=== PATIENT | male | born 1945 | race Caucasian/White ===

== ENCOUNTER 2019-06-05 16:04 | Inpatient (IN) | payer OTHER ==
[~2019-06-05] VITALS: Ht 167.6 cm; Wt 103.4 kg
[2019-06-05] MEDS ORDERED: HYDROCODON-ACE1 EA10 PO (17:58)
[2019-06-05] MEDS ORDERED: ASPIRIN81 MG PO (17:59)
[2019-06-05] MEDS ORDERED: FLOMAX0.4 MG PO (17:59)
[2019-06-05] MEDS ORDERED: CELEBREX200 MG PO (17:59)
[2019-06-05] MEDS ORDERED: VOLTAREN100 GM TOPICAL (18:00)
[2019-06-05] MEDS ORDERED: THERAGRAN M [BK1 TAB PO (18:01)
[2019-06-05] MEDS ORDERED: LIDODERM 5 %1 PATCH TRANSDERM (18:01)
[2019-06-05] MEDS ORDERED: OMEPRAZOLE20 M1 PO (18:02)
--- NOTE | 2019-06-05 18:08 | NUR ---
RECEIVED PT VIA STRETCHER WITH EMS. PT IS AAO AND UP AD CARA. RR EVEN AND UNLABORED ON RA. NO S/S OF DISTRESS NOTED. PIV SALINE LOCKED. PT DENIES ANY NEEDS. ORIENTED TO ROOM. FALL PRECAUTIONS IN PLACE. WILL CTM.
--- NOTE | 2019-06-05 19:32 | NUR ---
PT LYING IN BED AWKAE ALERT AND ORIENTED x4. TALKING ON PHONE. NO SIGNS OR SYMPTOMS OF DISTRESS NOTED. RESPIRATIONS EVEN AND UNLABORED. NO COMPLAINTS OF PAIN AT THIS TIME. CALL LIGHT WITH IN REACH AND BED IS IN LOWEST POSTION. WILL CONTINUE TO MONITOR
[2019-06-05 21:03] VITALS: BP 123/89
[2019-06-06] VITALS (7 sets, daily range): BP systolic 123–163; BP diastolic 75–92; BMI 33.8
--- NOTE | 2019-06-06 02:08 | NUR ---
PT LYING N BED RESTING WITH EYES CLOSED. NO SIGNS OR SYMPTOMS OF DISTRESSNOTED. RESPIRATIONS EVEN AND UNLABORED. PT HAD SHOWER. PT ENCOURAGED TO CALL FOR HELP WHEN NEEDED. CALL LIGHT WITH IN REACH AND BED IS IN LOWEST POSITION. WILL CONTINUE TO MONITOR
--- NOTE | 2019-06-06 02:11 | NUR ---
I have reviewed this patient and I concur with the Shift Assessment completed by the Licensed Practical Nurse today this shift.
--- NOTE | 2019-06-06 03:40 | NUR ---
CONSENTS FOR RENAL BIOPSY SIGNED AND CHARTED
[2019-06-06 05:19] LABS: BASOPHILS 0.3 % (0-2); EOSINOPHILS 8.7 % (0-7); HEMATOCRIT 34.6 % (42.0-54.0); HEMOGLOBIN 11.1 g/dL (13.5-17.5); IMMATURE GRANULOCYTES 0.3 % (0-5); LYMPHOCYTES 13.5 % (15-50); MCH 26.4 pg (26.0-34.0); MCHC 32.1 g/dL (31.0-37.0); MCV 82.4 fL (80.0-100.0); MEAN PLATELET VOLUME 8.8 fL (7.4-10.4); MONOCYTES 12.3 % (2-11); NEUTROPHILS 64.9 % (40-80); PLATELET COUNT 231 10x3/uL (130-400); RDW 17.8 % (11.5-14.5)
[2019-06-06 05:40] LABS: INR 1.13 (0.85-1.17); PROTIME 14.5 SECONDS (11.6-15.0)
[2019-06-06 05:57] LABS: ALBUMIN 2.2 g/dL (3.4-5.0); ANION GAP 15.6 mmol/L (8-16); BILIRUBIN - TOTAL 0.32 mg/dL (0.2-1.3); CALCIUM 7.3 mg/dL (8.5-10.1); CARBON DIOXIDE 20.9 mmol/L (21.0-32.0); CREATININE - SERUM 6.7 mg/dL (0.6-1.3); POTASSIUM - SERUM 5.5 mmol/L (3.5-5.1); PROTEIN - SERUM 6.1 g/dL (6.4-8.2)
--- NOTE | 2019-06-06 08:21 | NUR ---
PT RESTING, DENIES NEEDS OR PAIN AT THIS TIME. RR EVEN AND UNLABORED. BED IN LOWEST POSITION. CALL LIGHT WITHIN REACH. SPOKE WITH IR, STATED THEY COULD NOT TAKE PATIENT FOR BIOPSY BECAUSE HE HAD NOT BEED TAKEN OFF HIS ASPIRIN. KOREY ALCANTAR NOTIFIED.
[2019-06-06 13:51] LABS: COMPLEMENT C4 19.4 mg/dL (17.4-52.2)
[2019-06-06 14:31] LABS: ERYTHROCYTE SEDIMENTATION RATE 45 mm/hr (0-20)
[2019-06-06 17:20] LABS: NITRITE NEGATIVE (NEGATIVE)
[2019-06-06 17:21] LABS: BILIRUBIN NEGATIVE (NEGATIVE); GLUCOSE NEGATIVE (NEGATIVE); KETONE NEGATIVE (NEGATIVE); UROBILINOGEN NORMAL (NORMAL)
[2019-06-06 17:22] LABS: BACTERIA MODERATE /hpf (NEGATIVE); RED CELLS - URINE >50 /hpf (0-5); WHITE CELLS - URINE 0-5 /hpf (NEGATIVE)
--- NOTE | 2019-06-06 18:29 | NUR ---
I have reviewed this patient and I concur with the Shift Assessment completed by the Licensed Practical Nurse today this shift.
--- NOTE | 2019-06-06 19:00 | NUR ---
REPORT RECEIVED, WILL CONTINUE POC. PATIENT IS AAOX4, LYING ON RT SIDE. NO S/S OF DISTRESS OBSERVED, RR EVEN AND UNLABORED ON ROOM AIR. PIV TO RT FA, PATENT, SL, NICKG C/D/I. PATIENT DENIES NEEDS AT THIS TIME. CL IN REACH, BED LOCKED AND LOWERED. WILL CTM.
[2019-06-07] VITALS: BP 139/97
--- NOTE | 2019-06-07 01:41 | NUR ---
I have reviewed this patient and I concur with the Shift Assessment completed by the Licensed Practical Nurse today this shift.
[2019-06-07 04:00] VITALS: BP 149/71
[2019-06-07 06:13] LABS: INR 1.21 (0.85-1.17); PROTIME 15.2 SECONDS (11.6-15.0)
[2019-06-07 06:36] LABS: ALBUMIN 2.2 g/dL (3.4-5.0); BILIRUBIN - DIRECT 0.11 mg/dL (0.00-0.30); BILIRUBIN - INDIRECT 0.27 mg/dL (0.00-1.00); BILIRUBIN - TOTAL 0.38 mg/dL (0.2-1.3); CHOL - HDL RATIO 4.9 ratio (2.3-4.9); LDL-HDL RATIO 3.1 ratio (1.5-3.5); PROTEIN - SERUM 6.3 g/dL (6.4-8.2)
[2019-06-07 10:59] VITALS: BP 140/79
[2019-06-07 11:10] LABS: ANA REFLEX - DIRECT Negative (Negative); SPE - A/G RATIO 0.7 (0.7-1.7); SPE - ALBUMIN 2.8 g/dL (2.9-4.4); SPE - ALPHA-1 GLOBULIN 0.4 g/dL (0.0-0.4); SPE - ALPHA-2 GLOBULIN 0.9 g/dL (0.4-1.0); SPE - BETA GLOBULIN 1.1 g/dL (0.7-1.3); SPE - GAMMA GLOBULIN 1.5 g/dL (0.4-1.8); SPE - M-SPIKE Not Observed g/dL (Not Observed); SPE - TOTAL PROTEIN 6.6 g/dL (6.0-8.5)
[2019-06-07 11:33] LABS: ANION GAP 18.2 mmol/L (8-16); CALCIUM 7.6 mg/dL (8.5-10.1); CARBON DIOXIDE 20.1 mmol/L (21.0-32.0); CREATININE - SERUM 7.9 mg/dL (0.6-1.3); POTASSIUM - SERUM 5.3 mmol/L (3.5-5.1); URIC ACID 8.7 mg/dL (2.6-7.2)
--- NOTE | 2019-06-07 13:20 | NUR ---
I have reviewed this patient and I concur with the Shift Assessment completed by the Licensed Practical Nurse today this shift.
[2019-06-07 13:52] VITALS: BP 128/83
[2019-06-07 14:28] LABS: CREATININE - URINE 54.9 mg/dL (30-125)
[2019-06-07 14:29] LABS: PRO/CRE RATIO URINE 4.7 mg/g; PROTEIN - URINE 257.1 mg/dL (0.0-11.9)
--- NOTE | 2019-06-07 19:49 | NUR ---
REPORT RECEIVED, WILL CONTINUE POC. PATIENT IS AAOX4, SITTING IN CHAIR, FAMILY AT BEDSIDE. EDUCATED PATIENT ABOUT NPO @ MIDNIGHT FOR KIDNEY BIOPSY IN AM. PATIENT EXPRESSED UNDERSTANDING. NO S/S OF DISTRESS OBSERVED, RR EVEN AND UNLABORED ON ROOM AIR. PIV TO RT FA, PATENT, SL. PATIENT DENIES NEEDS AT THIS TIME. CL IN REACH BED LOCKED AND LOWERED. WILL CTM.
[2019-06-07 20:00] VITALS: BP 149/97
--- NOTE | 2019-06-07 23:30 | NUR ---
ELIF MC, ORE MIXER FOR PATIENT HR STAYING IN THE 130'S. ORDERS RECEIVED, PIZZA CHEF CALLED TO PULL MED TO BE ADMINISTERED.
[2019-06-08] VITALS: BP 144/99
--- NOTE | 2019-06-08 03:31 | NUR ---
I have reviewed this patient and I concur with the Shift Assessment completed by the Licensed Practical Nurse today this shift.
[2019-06-08 04:00] VITALS: BP 142/98
--- NOTE | 2019-06-08 04:54 | NUR ---
PT HR 13O'S AGAIN, EKG PERFORMED RESULTS REPORTED TO ANNIE MC APN.
[2019-06-08 05:25] LABS: ANION GAP 18.9 mmol/L (8-16); CALCIUM 7.7 mg/dL (8.5-10.1); CARBON DIOXIDE 17.9 mmol/L (21.0-32.0); CREATININE - SERUM 8.8 mg/dL (0.6-1.3); POTASSIUM - SERUM 5.8 mmol/L (3.5-5.1)
[2019-06-08 05:29] LABS: BASOPHILS 0 % (0-2); EOSINOPHILS 0 % (0-7); HEMATOCRIT 36.2 % (42.0-54.0); HEMOGLOBIN 11.9 g/dL (13.5-17.5); IMMATURE GRANULOCYTES 0.3 % (0-5); LYMPHOCYTES 8.9 % (15-50); MCH 26.3 pg (26.0-34.0); MCHC 32.9 g/dL (31.0-37.0); MEAN PLATELET VOLUME 8.7 fL (7.4-10.4); MONOCYTES 1.6 % (2-11); NEUTROPHILS 89.2 % (40-80); RBC 4.53 10x6/uL (4.20-6.10); WBC 7.6 10x3/uL (4.8-10.8)
[2019-06-08 05:43] LABS: INR 1.13 (0.85-1.17); PROTIME 14.5 SECONDS (11.6-15.0)
[2019-06-08 05:44] LABS: APTT 38.2 SECONDS (22.8-39.4)
[2019-06-08 05:45] LABS: MCV 79.9 fL (80.0-100.0)
[2019-06-08 05:46] LABS: PLATELET COUNT 310 10x3/uL (130-400)
--- NOTE | 2019-06-08 05:56 | NUR ---
CARDIOLOGY CONSULTED PER ANNIE MC. ORDERS RECEIVED FROM DR. OLEARY. WILL HAVE RN ADMINISTER CARDIZEM DRIP PER ORDERS.
--- NOTE | 2019-06-08 08:07 | NUR ---
PT IS RESTING IN BED WITH EYES OPEN. RESPIRATIONS ARE EVEN AND UNLABORED. PT IS AAO X 4. PT IS NPO FOR PROCEDURE WITH IR. PT VERBALIZES UNDERSTANDING. PT DENIES PRESENCE OF N/V/DYSPNEA AT THIS TIME. PT DENIES PRESENCE OF PAIN AT THIS TIME. BED IS IN THE LOWEST POSITION. CALL LIGHT AND BEDSIDE TABLE ARE WITHIN REACH. SIDE RAILSX 2. PT DENIES FURTHER NEEDS. WILL CONT TO MONITOR.
[2019-06-08 09:10] LABS: ANTI-GLOMERULAR BASMENT MEMBRN 3 units (0-20)
--- NOTE | 2019-06-08 09:10 | NUR ---
PT TRANSPORTED OFF FLOOR VIA BED FOR PROCEDURE.
--- NOTE | 2019-06-08 09:51 | NUR ---
PT RETURNS TO ROOM AAO X 4. UNABLE TO COMPLETE PROCEDURE PER IR NURSE. SEE DOCUMENTATION. PT DENIES PRESENCE OF PAIN/N/V/DYSPNEA. BED IS IN THE LOWEST POSITION. CALL LIGHT AND BEDSIDE TABLE ARE WITHIN REACH. SIDE RAILS X 2. PT DENIES FURTHER NEEDS. WILL CONT TO MONITOR.
[2019-06-08 10:03] VITALS: BP 113/89
[2019-06-08 12:40] VITALS: BP 135/76
[2019-06-08 12:59] LABS: BASOPHILS 0 % (0-2); EOSINOPHILS 0 % (0-7); HEMATOCRIT 37.9 % (42.0-54.0); HEMOGLOBIN 12.6 g/dL (13.5-17.5); IMMATURE GRANULOCYTES 0.2 % (0-5); LYMPHOCYTES 6.7 % (15-50); MCH 26.5 pg (26.0-34.0); MCHC 33.2 g/dL (31.0-37.0); MEAN PLATELET VOLUME 8.6 fL (7.4-10.4); MONOCYTES 2.3 % (2-11); NEUTROPHILS 90.8 % (40-80); RBC 4.75 10x6/uL (4.20-6.10); RDW 16.9 % (11.5-14.5)
[2019-06-08 13:00] LABS: MCV 79.8 fL (80.0-100.0); PLATELET COUNT 339 10x3/uL (130-400); WBC 12.3 10x3/uL (4.8-10.8)
[2019-06-08 13:15] LABS: ANION GAP 17.3 mmol/L (8-16); CALCIUM 8.2 mg/dL (8.5-10.1); CARBON DIOXIDE 21.5 mmol/L (21.0-32.0); CREATININE - SERUM 9.1 mg/dL (0.6-1.3); POTASSIUM - SERUM 5.8 mmol/L (3.5-5.1)
--- NOTE | 2019-06-08 14:18 | NUR ---
CONSENT SIGNED FOR TRIALYSIS PLACEMENT. DR ASHTON ON FLOOR. SIGNED CONSENT PLACED IN PT CHART.
--- NOTE | 2019-06-08 16:42 | EC ---
PATIENT:ALFREDO LANZA DATE OF SERVICE: 06/05/19 SEX: M MEDICAL RECORD: [id number] DATE OF : [birth year] LOCATION:D.M2 D.211 AGE OF PATIENT: 74 ADMISSION DATE: 06/05/19 REFERRING PHYSICIAN: INTERPRETING PHYSICIAN: EBONY MCMAHAN MD ECHOCARDIOGRAM REPORT ECHO CHARGES 4 ECHO COMPLETE Date: 06/08/19 CLINICAL DIAGNOSIS: AFLUTTER ECHOCARDIOGRAPHIC MEASUREMENTS (adult normal given) AC root (d.<3.7cm) 3.2 cm LV Septum d (<1.2 cm> 1.5 cm Valve Excursion 1.9 cm LV Septum (systole) 1.6 cm Left Atria (s.<4.0cm> 4.6 cm LVPW d(<1.2cm) 1.1 cm RV (d.<2.3cm) 2.9 cm LVPW (sytole) 1.5 cm LV diastole(<5.6CM) 4.6 cm MV E-F(>70mm/sec) cm LV systole 3.3 cm LVOT Diameter 2.1 cm MV exc.(>10mm) cm Est.ejection fraction (50-75%) % DOPPLER: LVIT cm/sec A 75 cm/sec E 60 cm/sec LA cm/sec RVSP 20.1 mmHg LVOT 80 cm/sec AOP1/2T m/s Asc. Ao 137 cm/sec RVOT 61 cm/sec RA cm/sec PA 85 cm/sec AV Gradient Peak 7.5 mmHg AV Mean 5.3 mmHg AV Area 1.9 cm MV Gradient Peak 4.5 mmHg MV Mean 2.3 mmHg MV Area cm COMMENTS: Damage Inside Adjuster: [facility] Window Shade Cutter: 1 Dr. Mcmahan TAPE# PACS Pericardial Effusion N DATE OF SERVICE: ECHOCARDIOGRAM FINDINGS: 1. Left ventricular chamber size is within normal limits. Left ventricular systolic function is mildly depressed at 40% to 45%. 2. Left atrium is enlarged at 4.6 cm. Right atrium and right ventricular chamber sizes are as well mildly dilated. 3. Valvular structures have normal structure and motion. ECHOCARDIOGRAM REPORT [id number] ALFREDO LANZA 4. Doppler interrogation only reveals trace mitral regurgitation, mild tricuspid regurgitation, no other valvular insufficiency or stenosis. Pulmonary systolic pressure estimated at 20 mmHg. 5. No evidence of pericardial effusion or left ventricular thrombus. TRANSINT:[id number] Voice Confirmation ID: [id number] DOCUMENT ID: [id number] EBONY MCMAHAN MD at 1642 CC: [id number] DICTATION DATE: 06/08/19 1145 HOT BLASTER: 06/08/19 1224 ADM IN [facility] [address] [place] [address]
--- NOTE | 2019-06-08 19:23 | NUR ---
REPORT RECEIVED, WILL CONTINUE POC. PATIENT IS AAOX4, SITTING UP ON SIDE OF BED EATING. FAMILY AT BEDSIDE. PATIENT'S HR IN THE 150'S, HE'S ASYMPTOMATIC. PATIENT HAD NEW TRIALYSIS PLACED TO RT SIDE OF NECK, DRSG C/D/I. PIV TO RT FA, PATENT, SL. NO S/S OF DISTRESS OBSERVED, RR EVEN AND UNLABORED ON ROOM AIR. PATIENT DENIES NEEDS AT THIS TIME. CL IN REACH, BED LOCKED AND LOWERED. WILL CTM.
[2019-06-08 20:30] VITALS: BP 170/130
--- NOTE | 2019-06-08 20:40 | NUR ---
PT BP 171/114, HR STILL IN THE 130-150 RANGE. HS AMIODARONE ADMINISTERED. WILL REASSESS.
[2019-06-08 21:05] LABS: BILIRUBIN NEGATIVE (NEGATIVE); GLUCOSE NEGATIVE (NEGATIVE); KETONE NEGATIVE (NEGATIVE); NITRITE NEGATIVE (NEGATIVE); UROBILINOGEN NORMAL (NORMAL)
[2019-06-08 21:09] LABS: WHITE CELLS - URINE 0-5 /hpf (NEGATIVE)
[2019-06-08 21:10] LABS: BACTERIA FEW /hpf (NEGATIVE); RED CELLS - URINE 25-50 /hpf (0-5)
--- NOTE | 2019-06-09 00:29 | NUR ---
PT HAS DEVELOPED 1+ EDEMA TO BILATERAL LOWER EXTREMITIES. PATIENT HAS BEEN SITTING UP IN CHAIR SINCE THE BEGINNING OF SHIFT. HAD PATIENT GET INTO BED AND ELEVATE HIS FEET. BP 134/93 HR 103. PATIENT DENIES ANY PAIN OR DISCOMFORT. WILL CTM.
[2019-06-09 00:30] VITALS: BP 134/93
[2019-06-09 04:30] VITALS: BP 135/91
--- NOTE | 2019-06-09 05:00 | NUR ---
I have reviewed this patient and I concur with the Shift Assessment completed by the Licensed Practical Nurse today this shift.
[2019-06-09 05:19] LABS: BASOPHILS 0 % (0-2); EOSINOPHILS 0 % (0-7); HEMATOCRIT 33.9 % (42.0-54.0); HEMOGLOBIN 11.3 g/dL (13.5-17.5); IMMATURE GRANULOCYTES 0.3 % (0-5); LYMPHOCYTES 5.9 % (15-50); MCH 26.2 pg (26.0-34.0); MCHC 33.3 g/dL (31.0-37.0); MCV 78.5 fL (80.0-100.0); MEAN PLATELET VOLUME 8.7 fL (7.4-10.4); MONOCYTES 3.3 % (2-11); NEUTROPHILS 90.5 % (40-80); PLATELET COUNT 324 10x3/uL (130-400); RBC 4.32 10x6/uL (4.20-6.10); RDW 16.7 % (11.5-14.5); WBC 12.3 10x3/uL (4.8-10.8)
[2019-06-09 05:45] LABS: ANION GAP 17.1 mmol/L (8-16); CALCIUM 7.6 mg/dL (8.5-10.1); CARBON DIOXIDE 21.1 mmol/L (21.0-32.0); CREATININE - SERUM 7.4 mg/dL (0.6-1.3); POTASSIUM - SERUM 5.2 mmol/L (3.5-5.1)
[2019-06-09 08:21] VITALS: BP 129/87
--- NOTE | 2019-06-09 08:37 | NUR ---
ROUNDING DONE WITH PATIENT BEING ON THE MONITOR SHOWING AFLUTTER, HR 89. ON ROOM AIR. RIGHT IJ TRIALYSIS SEEN WITH NURSE PORT, DRESSING CDI. RIGHT FA SEEN WITH SALINE LOCK. PATIENT IS MILLE LACS. AT BEDSIDE. DENIES NEEDS AT THIS TIME. WILL CONTINUE TO MONITOR.
[2019-06-09 11:22] VITALS: BP 151/89
--- NOTE | 2019-06-09 13:26 | NUR ---
SITTING IN CHAIR, IN THE BED. PATIENT EARILER IN SHIFT HAD SHOWER AND LINEN CHANGE. DENIES NEEDS AT THIS TIME.
--- NOTE | 2019-06-09 15:27 | NUR ---
PATIENT STATES THAT THE IV STEROIDS ARE SUPPOSE TO BE AT DIALYSIS. I CALLED SAWYER IN DIALYSIS AND HE WILL BE GOING DOWN SHORTLY AND SHE WILL HANG THE MEDICATION. I RELAYED THIS TO THE [facility].
[2019-06-09 15:32] VITALS: BP 153/82
--- NOTE | 2019-06-09 16:27 | NUR ---
PATIENT IN CHAIR MOST OF DAY WITH FEET DOWN. 3+ EDEMA NOTED. FEET UP AND TWO PILLOWS PLACED UNDER LEGS. FAMILY AT [facility]. STILL AWAITING FOR DIALYSIS.
--- NOTE | 2019-06-09 17:25 | NUR ---
TO DIALYSIS VIA CHAIR.
[2019-06-09 20:30] VITALS: BP 145/92
--- NOTE | 2019-06-09 20:53 | NUR ---
RECEIVED BACK FROM DIALYSIS. NO REPORT GIVEN TO THIS NURSE. ALERT AND ORIENTED X4. U[P AD CARA TO B/R. FAMILY AT BEDSIDE. TELEMETRY IN PLACE. RT IJ TRIALYSIS AND IV TO RT FS SL. DENIES ANY NEEDS AT THIS TIME.
[2019-06-10 00:30] VITALS: BP 144/85
[2019-06-10 04:30] VITALS: BP 146/89
[2019-06-10 05:33] LABS: BASOPHILS 0 % (0-2); EOSINOPHILS 0 % (0-7); HEMATOCRIT 32.8 % (42.0-54.0); HEMOGLOBIN 10.8 g/dL (13.5-17.5); IMMATURE GRANULOCYTES 0.6 % (0-5); LYMPHOCYTES 6.9 % (15-50); MCHC 32.9 g/dL (31.0-37.0); MEAN PLATELET VOLUME 8.8 fL (7.4-10.4); MONOCYTES 2.5 % (2-11); PLATELET COUNT 307 10x3/uL (130-400); RBC 4.15 10x6/uL (4.20-6.10); RDW 17.3 % (11.5-14.5)
[2019-06-10 05:36] LABS: WBC 8.7 10x3/uL (4.8-10.8)
[2019-06-10 05:55] LABS: ANION GAP 15.5 mmol/L (8-16); CALCIUM 7.4 mg/dL (8.5-10.1); CARBON DIOXIDE 23.3 mmol/L (21.0-32.0); POTASSIUM - SERUM 4.8 mmol/L (3.5-5.1)
--- NOTE | 2019-06-10 07:20 | NUR ---
RECIEVE REPORT. ALERT AND ORIENTED X4. SITTING UP IN CHAIR. [place]. SPOUSE AT BEDSIDE. DENIES ANY NEEDS. CONTINUE PLAN OF CARE AND SAFETY PRECAUTIONS.
[2019-06-10 08:06] VITALS: BP 135/84
[2019-06-10 11:47] VITALS: BP 142/76
[2019-06-10 15:55] VITALS: BP 199/91
--- NOTE | 2019-06-10 20:00 | NUR ---
RECEIVED BEDSIDE SHIFT REPORT. ALERT AND ORIENTED X4. UP AD CARA. REQUESTING A SHOWER. SHOWER GIVEN PER REQUEST. IV TO RT FS SL AND RT IJ TRIALYSIS SL. DENIES ANY NEEDS AT THIS TIME.
[2019-06-10 20:30] VITALS: BP 144/98
[2019-06-11] VITALS (12 sets, daily range): BP systolic 120–149; BP diastolic 75–98
[2019-06-11 05:15] LABS: BASOPHILS 0 % (0-2); EOSINOPHILS 0 % (0-7); HEMATOCRIT 31.8 % (42.0-54.0); HEMOGLOBIN 10.5 g/dL (13.5-17.5); IMMATURE GRANULOCYTES 0.6 % (0-5); LYMPHOCYTES 6.6 % (15-50); MCH 25.8 pg (26.0-34.0); MCV 78.1 fL (80.0-100.0); MEAN PLATELET VOLUME 8.9 fL (7.4-10.4); MONOCYTES 7.1 % (2-11); NEUTROPHILS 85.7 % (40-80); PLATELET COUNT 314 10x3/uL (130-400); RBC 4.07 10x6/uL (4.20-6.10); RDW 17.1 % (11.5-14.5); WBC 9.4 10x3/uL (4.8-10.8)
[2019-06-11 05:16] LABS: ANION GAP 15.6 mmol/L (8-16); CALCIUM 7.1 mg/dL (8.5-10.1); CARBON DIOXIDE 23.9 mmol/L (21.0-32.0); CREATININE - SERUM 6.7 mg/dL (0.6-1.3); POTASSIUM - SERUM 4.5 mmol/L (3.5-5.1)
--- NOTE | 2019-06-11 07:20 | NUR ---
RECIEVE REPORT. ALERT AND ORIENTED X4. RESTING IN BED. FAMILY AT BEDSIDE. CONSENTS FOR RENAL BIOPSY SIGNED ON CHART. A-FLUTTER ON TELEMETRY. DENIES ANY NEEDS AT THIS TIME. CONTINUE PLAN OF CARE AND SAFETY PRECAUTIONS.
[2019-06-11 07:43] LABS: APTT 31.5 SECONDS (22.8-39.4)
[2019-06-11 07:50] LABS: INR 1.09 (0.85-1.17)
--- NOTE | 2019-06-11 09:40 | NUR ---
TAKEN TO PROCEDURE VIA BED.
[2019-06-11 15:10] LABS: ANCA - ANTIMYELOPEROXIDASE 18.8 U/mL (0.0-9.0); ANCA - ANTIPROTEINASE 3 <3.5 U/mL (0.0-3.5); ANCA - ATYPICAL <1:20 titer (Neg:<1:20); ANCA - CYTOPLASMIC <1:20 titer (Neg:<1:20); ANCA - PERINUCLEAR <1:20 titer (Neg:<1:20)
--- NOTE | 2019-06-11 16:56 | NUR ---
ALERT AND ORIENTED X4. SITTING UP ON SIDE OF BED. LT SIDE BACK DRESSING CLEAN DRY INTACT. FREE FROM BLEEDING. DAUGHTER AT BEDSIDE. DENIES ANY NEEDS AT THIS TIME. CONTINUE PLAN OF CARE AND SAFETY PRECAUTIONS.
[2019-06-11 17:08] LABS: UPE RAND - ALBUMIN 45.5 % (()); UPE RAND - ALPHA 1 GLOBULIN 1.7 % (()); UPE RAND - BETA GLOBULIN 16.8 % (()); UPE RAND - GAMMA GLOBULIN 21.1 % (())
--- NOTE | 2019-06-11 19:36 | NUR ---
RECEIVED UP IN BED WITH EYES CLOSED. AROUSES TO VERBAL STIMULI. DTR AT BEDSIDE. ORIENTED X4. DSG TO LEFT LOWER BACK WITH PINK COLOR DRAINAGEON DSG. DSG INTACT. TELEMETRY IN PLACE. DENIES ANY NEEDS AT THIS TIME.
[2019-06-12 00:55] VITALS: BP 130/86
[2019-06-12 04:42] VITALS: BP 133/83
[2019-06-12 04:49] LABS: BASOPHILS 0 % (0-2); EOSINOPHILS 0 % (0-7); HEMATOCRIT 32.9 % (42.0-54.0); HEMOGLOBIN 10.9 g/dL (13.5-17.5); LYMPHOCYTES 6.6 % (15-50); MCHC 33.1 g/dL (31.0-37.0); MCV 78.5 fL (80.0-100.0); MEAN PLATELET VOLUME 8.9 fL (7.4-10.4); MONOCYTES 13.1 % (2-11); NEUTROPHILS 79.3 % (40-80); PLATELET COUNT 301 10x3/uL (130-400); RBC 4.19 10x6/uL (4.20-6.10); RDW 17.1 % (11.5-14.5); WBC 11.5 10x3/uL (4.8-10.8)
[2019-06-12 05:10] LABS: ANION GAP 15.4 mmol/L (8-16); CARBON DIOXIDE 23.2 mmol/L (21.0-32.0); CREATININE - SERUM 7.2 mg/dL (0.6-1.3); POTASSIUM - SERUM 4.6 mmol/L (3.5-5.1)
[2019-06-12 05:24] LABS: CALCIUM 6.3 mg/dL (8.5-10.1)
--- NOTE | 2019-06-12 07:30 | NUR ---
PT LYING IN BED. EYES CLOSED. CHEST RISING AND FALLING. BED LOW. CL IN REACH. FAMILY AT BEDSIDE ASLEEP IN RECLINER CHAIR. WILL CONTINUE WITH POC.
[2019-06-12 08:11] LABS: HEP B CORE AB TOTAL Negative (Negative)
[2019-06-12 12:56] VITALS: BP 151/100
--- NOTE | 2019-06-12 13:28 | NUR ---
PT WANTING STOOL SOFTNER AND HEMRRHOID CREAM. CALLED ASPLEE WITH [facility] AND SHE STTES TO ORDER CREAM AND COLACE BIDP. I VERBALIZED UNDERSTANDING.
--- NOTE | 2019-06-12 13:44 | OP ---
PATIENT NAME: ALFREDO LANZA MEDICAL RECORD: [id number] :47 LOCATION:D.M2 D.3 ADMISSION DATE:06/05/19 SURGEON: NANCY ASHTON MD DATE OF OPERATION: 06/08/2019 PREOPERATIVE DIAGNOSES: 1. Acute renal failure. 2. Glomerulonephritis. 3. Hematuria. 4. Hypertension. POSTOPERATIVE DIAGNOSES: 1. Acute renal failure. 2. Glomerulonephritis hematuria 3. Hypertension. PROCEDURE: Right IJ 12.5 cm Trialysis catheter placement. SURGEON: Nancy Ashton MD REPORT OF PROCEDURE: The patient's right neck was prepped and draped in sterile fashion. Using ultrasound guidance, we infused 5 mL of 1% lidocaine with epinephrine to the right neck. A needle was then used to cannulate the right internal jugular vein and a guidewire was advanced with ease. A dilator was then placed over the wire followed by the Trialysis catheter. This catheter aspirated nonpulsatile dark blood and flushed easily with normal saline. This was sutured into place with 4-0 nylon and dressed appropriately. COMPLICATIONS: None. CONDITION: Stable. ANESTHESIA: Local. BLOOD LOSS: Minimal. Procedure done at the bedside. TRANSINT:[id number] Voice Confirmation ID: [id number] DOCUMENT ID: [id number] NANCY ASHTON MD at 1344 CC: [id number] DICTATION DATE: 06/08/19 1459 SCENIC ARTS SUPERVISOR: 06/08/191944 ADM IN [facility] [address] [place] [address]
--- NOTE | 2019-06-12 13:45 | NUR ---
pharmacy states they are out of cream and to order a suppossitory. i verbalized understanding.
[2019-06-12 13:46] VITALS: Ht 167.6 cm; Wt 103.4 kg
--- NOTE | 2019-06-12 14:46 | NUR ---
PT TAKEN TO DIALYSIS VIA WC.
[2019-06-12] MEDS ORDERED: AMIODARONE HCL200 MG PO (17:13)
[2019-06-12] MEDS ORDERED: COREG 3.1253.125 MG PO (17:13)
[2019-06-12] MEDS ORDERED: VELTASSA8.4 GM PO (17:14)
[2019-06-12] MEDS ORDERED: FAMOTIDINE10 MG PO (17:14)
[2019-06-12] MEDS ORDERED: PREDNISONE50 MG PO (17:15)
[2019-06-12] MEDS ORDERED: SMZ-TMP DS TABL1 TAB (17:16)
[2019-06-12] MEDS ORDERED: COLACE100 MG PO (17:18)
[2019-06-12] MEDS ORDERED: ACETAMINOPHEN325 MG PO (17:18)
--- NOTE | 2019-06-12 17:18 | NUR ---
CALLED [facility] TO GIVE REPORT THEY STATE LEIGH MARR IS IN ANOTHER AND THEY WILL TAKE THIS NUMBER DOWN AND HAVE HER CALL ME. I VERBALIZED UNDERSTANDING.
[2019-06-12] MEDS ORDERED: ANUSOL-HC25 MG RC (17:19)
--- NOTE | 2019-06-12 17:25 | MORECARE ---
CASE MANAGEMENT DISCHARGE SUMMARY PATIENT: ALFREDO LANZA UNIT: [id number] ADM DATE: 06/05/19 AGE: 74 : 46 SEX: M ROOM/BED: D.[facility]3 AUTHOR: DEBRA CROWLEY PHYSICIAN: REFERRING PHYSICIAN: KADEN HONEYCUTT MD DATE OF SERVICE: 06/12/19 Discharge Plan Patient Name: ALFREDO LANZA Facility: [facility]:[place] : 1945 Planned Disposition: Acute Care Hospital Anticipated Discharge Date: 06/12/19 Discharge Date: Expected LOS: 7 Initial Reviewer: [email or web address] Initial Review Date: 06/12/2019 Generated: 06/12/19 6:25 pm External Providers External Provider: [facility] Next Contact Date: Service Request Date: Service Type: Resolution: Reviewer: Comments: Patient Name: ALFREDO LANZA Page [phone] at 1725 All edits/amendments must be made on the electronic document DICTATION DATE: 06/12/19 172 BLENDER LABORER: EVIN 06/12/19 172 RPT#: [id number] DC DATE: STATUS: ADM IN [facility] [address] [place] [address] END OF REPORT
--- NOTE | 2019-06-12 17:33 | MORECARE ---
CASE MANAGEMENT DISCHARGE SUMMARY PATIENT: ALFREDO LANZA UNIT: [id number] ADM DATE: 06/05/19 AGE: 74 : 46 SEX: M ROOM/BED: D.0593 AUTHOR: KEO,DOC PHYSICIAN: REFERRING PHYSICIAN: KADEN HONEYCUTT MD DATE OF SERVICE: 06/12/19 Discharge Plan Patient Name: ALFREDO LANZA Facility: [facility]:[place] : 1945 Planned Disposition: Acute Care Hospital Anticipated Discharge Date: 06/12/19 Discharge Date: Expected LOS: 7 Initial Reviewer: [email or web address] Initial Review Date: 06/12/2019 Generated: 06/12/19 6:33 pm Comments DCP- Discharge Planning Updated by [email or web address]: Jesus Basilio on 06/12/19 4:[address] Patient Name: ALFREDO LANZA Admission Status: Elective Accout number: [id number] Admission Date: 06-05-2019 : 1945 Admission Diagnosis: Attending: KADEN HONEYCUTT Current LOS: 7 Anticipated DC Date: 06-12-2019 Planned Disposition: Acute Care Hospital Primary Insurance: [employer] PLANNED EXTERNAL PROVIDER: [facility], ICU BED 19. Discharge Planning Comments: [facility] SPOKE TO DR. HONEYCUTT WHO PROVIDED TRANSER ORDER. [facility] OBTAINED ADMINISTRATIVE APPROVAL FROM RN ASSESSMENT. [facility] CALLED TRANSFER CENTER, , PROVIDED REFERRAL INFORMATION TO [facility]. CORINNE MET WITH PT'S DAUGHTER IN ROOM, SPOUSE VIA PHONE; PT IN DIALYSIS. DAUGHTER AND SPOUSE REPORT THAT THEY HAVE SPOKEN TO DR. HONEYCUTT WITH PT AND ALL AGREE FOR TRANSFER. PT LIVES AT HOME WITH HIS , HAS A CANE AND NO MEDICAL EQUIPMENT PROVIDER. PT HAS NO OUTSIDE SERVICES ASSISTING IN THE HOME. [facility] RECEIVED CALL FROM YANDEL OF TRANSFER CENTER, PT HAS BEEN ACCEPTED BY DR. HAYES OF [facility] IN [place], PT TO ADMIT TO ICU BED #19. NUMBER FOR NURSE REPORT GIVEN TO BEDSIDE NURSE. PT TO TRANSPORT VIA AMBULANCE. Ornithology Teacher: Jesus Basilio DCPIA - Discharge Planning Initial Assessment Updated by [email or web address]: Jesus Basilio on 06/12/19 5:25 pm * Is the patient Alert and Oriented? Yes * How many steps to enter\exit or inside your home? * PCP DR. GIBSON PENROSE * [place] [facility] [place] * Preadmission Environment Home with Family * ADLs Independent * Equipment Cane * Other Equipment NO MEDICAL EQUIPMENT PROVIDER PREFERENCE * List name and contact numbers for known caregivers / representatives who currently or will assist patient after discharge: YUKI CHAPMAN, DTR, CAROLFARA LANZA, SPOUSE, * Verbal permission to speak to the caregivers and representatives has been obtained from the patient. N/A * Community resources currently utilized None * Please name any agencies selected above. NONE * Additional services required to return to the preadmission environment? Yes * Can the patient safely return to the preadmission environment? Yes * Has this patient been hospitalized within the prior 30 days at any hospital? No Last DP export: 06/12/19 4:25 pm Patient Name: ALFREDO LANZA Page [phone] at 1733 All edits/amendments must be made on the electronic document DICTATION DATE: 06/12/191732 [employer] CLAIM EXAMINER: EVIN 06/12/191732 RPT#: [id number] DC DATE: STATUS: ADM IN [facility] [address] [place] [address] END OF REPORT
--- NOTE | 2019-06-12 17:44 | NUR ---
CALLED REPORT TO LEIGH MARR AT [facility].
--- NOTE | 2019-06-12 18:05 | NUR ---
DIALYSIS STATES THEY DID NOT REMOVE ANY FLUID THEY JUST CLEANE 37.1L OF BLOOD.
--- NOTE | 2019-06-12 18:08 | NUR ---
PT RETURNED FROM DIALYSIS VIA . SIGNED TRANSFER FORM 1926.
--- NOTE | 2019-06-12 18:19 | NUR ---
MADINA MARRC T TECH SIGNED TRANSFER FORM.
--- NOTE | 2019-06-12 18:24 | NUR ---
CALLED [facility] AND THEY STATED IT WILL BE ABOUT 45 MINUTES. I VERBALIZED UNDERSTANDING.
--- NOTE | 2019-06-12 18:38 | NUR ---
I have reviewed this patient and I concur with the Shift Assessment completed by the Licensed Practical Nurse today this shift.
--- NOTE | 2019-06-12 19:05 | NUR ---
REPORT RECEIVED, WILL CONTINUE POC. PATIENT IS AAOX4, UP IN ROOM WITH DAUGHTER AT BEDSIDE. PATIENT GETTING READY TO BE TRANSPORTED TO [facility] VIA EMS. NO S/S OF DISTRESS OBSERVED, RR EVEN AND UNLABORED ON ROOM AIR. TRIALYSIS TO RT IJ, SL AND PIV TO RT FA, PATENT, CHANTALE, SUJIT C/D/I. PATIENT DENIES NEEDS AT THIS TIME. CL IN REACH, BED LOCKED AND LOWERED. WILL CTM.
--- NOTE | 2019-06-12 19:31 | NUR ---
PATIENT DC'D VIA EMS TO [facility]. ALL APPROPRIATE PAPERWORK COMPLETE, REPORT GIVEN TO EMS. PATIENT LEFT FLOOR AT THIS TIME.
== END 2019-06-12 19:32 | disposition short-term general hospital (02) | DRG 699 ==
LOC: D.M2 16:04
PROVIDERS: General Practice; ADMIT Internal Medicine Nephrology; ATTEND Internal Medicine Nephrology
PROC: 02HV33Z Insertion of Infusion Device into Superior Vena Cava, Percutaneous Approach (ICD-10-PCS; 2019-06-08)
PROC: 0TB13ZX Excision of Left Kidney, Percutaneous Approach, Diagnostic (ICD-10-PCS; principal; 2019-06-11 09:20)
DX: N01.7 Rapidly progressive nephritic syndrome with diffuse crescentic glomerulonephritis (principal); I48.92 Unspecified atrial flutter; N17.9 Acute kidney failure, unspecified; I10 Essential (primary) hypertension; K21.9 Gastro-esophageal reflux disease without esophagitis; E11.9 Type 2 diabetes mellitus without complications; E87.5 Hyperkalemia; Z86.73 Personal history of transient ischemic attack (TIA), and cerebral infarction without residual deficits